=== PATIENT | female | born 1950 | race Caucasian/White ===

== ENCOUNTER → 2017-04-18 | Outpatient (CLI) | payer OTHER ==
[~2017-04-18] VITALS: Ht 170.2 cm; Wt 86.2 kg
[~2017-04-18] MED LIST: ALEVE220 M1 PO; CELEXA 10 MG TA10 M1 PO; ENABLEX15 MG PO; MOBIC15 MG PO; OXYBUTYNIN ER 55 MG PO; VITAMIN D1000 UNI1 PO
--- NOTE | ~2017-04-18 | S ---
[facility] [email or web address] [address] SURGICAL PATH RPT PROCEDURE Name: SAMIRA MONREAL Room #: REG APRIL M.Carmelina.#: [id number] Admission: 04/18/17 Date of : 48 Discharge: Report #: [id number] Path Case #: [id number] PATHOLOGY REPORT COLLECTION DATE: 04/18/2017 RECEIVED DATE: 04/18/2017 SUBMITTING PHYS: Dr. Zeus Machuca OTHER PHYS: Dr. Sheng Watson SPECIMEN(S) RECEIVED: A.Gastritis * * * * * * * * * * * * FINAL DIAGNOSIS: Gastric biopsy "gastric": - Mild chronic reactive gastropathy. - The immunoperoxidase stains for Helicobacter pylori is negative. (SHA:pit; 04/19/2017) PATHOLOGIST: Luc Gunn M.D. REPORT ELECTRONICALLY SIGNED BY: Luc Gunn M.D. DATE/TIME: 04/19/2017 13:05 * * * * * * * * * * * * GROSS PATHOLOGY: Received in formalin labeled "Samira Monreal, BX of gastritis," are 2 segments of david soft tissue measuring 0.6 x 0.3 x 0.3 cm in aggregate dimensions and measuring 0.3 cm each in maximum dimension. The specimen is submitted entirely in cassette A1. (TSD; 04/18/2017) CLINICAL HISTORY: Dysphagia INITIAL CPT CODE(S): A; 89155, 34781 Professional services performed by [facility] at [facility] [address] , [place] [address] Technical services performed by [facility] at [address] [place] [address], [facility] [address], [place] [address]. [facility] [address] [place] [address] SURGICAL PATH RPT PROCEDURE Name: SAMIRA MONREAL Room #: REG APRIL Angulo#: [id number] Admission: 04/18/17 Date of : 48 Discharge: Report #: [id number] Path Case #: [id number] [facility] [id number] [address] [address] PHONE: [phone] DIRECTOR: Casey Wood M.D. * * * END OF REPORT * * *
--- NOTE | ~2017-04-18 | P ---
[facility] [place] [address] PROCEDURE REPORT Name: SAMIRA MONREAL Room #: REG APRIL Angulo#: [id number] Admission: 04/18/17 Attend Phys: Zeus Cruz Discharge: Date of : 48 Report #: [id number] THIS REPORT FOR: //name// CC: Zeus Watson MD DATE OF SERVICE: 04/18/2017 PROCEDURE PERFORMED: Upper endoscopy with biopsies and esophageal dilation. HISTORY OF PRESENT ILLNESS: The patient is a 67-year-old female with complaints of dysphagia. No significant heartburn. No previous history of upper endoscopy. Plan is for EGD with possible dilation. PROCEDURE: The risks and benefits of the procedure were explained to the patient, those risks including, but not limited to bleeding, perforation, and the risk of sedation. She understood these risks and gave informed consent. Sedation was given using propofol per anesthesia. Next, using a standard Chemclininon upper endoscope, the scope was placed in the patient's mouth and advanced under direct vision through the esophagus, stomach, and into the second portion of the duodenum. The larynx was normal in appearance. The upper and mid esophagus was normal. In the distal esophagus at the GE junction, grade A erosive esophagitis was noted and a mild Schatzki's ring was seen. Upon entering the stomach, a hiatal hernia was noted. Overall, the gastric mucosa was normal in the fundus and upper body. In the antrum and distal body, there was a mild gastritis. Biopsies were obtained to rule out H. pylori. The pylorus was normal and patent. The duodenal bulb was normal. In the second portion of the duodenum, there was a large duodenal diverticulum with food particles within the diverticulum, otherwise normal. The scope was then brought back up into the patient's stomach and a Savary guidewire was advanced through the scope leaving the guidewire in place as the scope was then withdrawn. Next, a 48 followed by a 51-Tajik Savary dilation of the esophagus was performed without difficulty. The wire and dilator were removed. The scope was reintroduced into the patient's stomach. There was no evidence of mucosal tear after dilation. The scope was then withdrawn and the procedure terminated. The patient tolerated the procedure well. IMPRESSION: 1. Grade A erosive esophagitis. 2. Schatzki's ring, status post dilation. 3. Hiatal hernia. 4. Gastritis. 5. Duodenal diverticulum. RECOMMENDATIONS: [facility] [address] [place] [address] PROCEDURE REPORT Name: SAMIRA MONREAL Room #: REG Nicole Angulo#: [id number] Admission: 04/18/17 Attend Phys: Zeus Cruz Discharge: Date of : 48 Report #: [id number] 1. Await biopsy results. 2. Recommend daily PPI therapy. 3. Observe the patient post dilation. Thank you for allowing me to participate in her care. By: [id number] Zeus Machuca MD /mame
== END | disposition home or self-care (01) ==
LOC: GI 08:32
DX: K31.9 Disease of stomach and duodenum, unspecified (principal); K22.2 Esophageal obstruction; K44.9 Diaphragmatic hernia without obstruction or gangrene; K57.10 Diverticulosis of small intestine without perforation or abscess without bleeding; Z96.653 Presence of artificial knee joint, bilateral; Z98.890 Other specified postprocedural states
CPT/HCPCS: 62110; 62900

== ENCOUNTER → 2017-11-12 | Outpatient (CLI) | payer OTHER | LOC: MRI 10:51 | DX: I67.82 Cerebral ischemia (principal) ==

== ENCOUNTER → 2018-11-19 | Outpatient (CLI) | payer OTHER | LOC: MRI 09:21 | DX: S09.90XA Unspecified injury of head, initial encounter (principal); I67.82 Cerebral ischemia; G31.9 Degenerative disease of nervous system, unspecified; R90.82 White matter disease, unspecified; X58.XXXA Exposure to other specified factors, initial encounter; Y93.89 Activity, other specified; Y92.89 Other specified places as the place of occurrence of the external cause; Y99.8 Other external cause status ==

== ENCOUNTER → 2018-12-23 | Outpatient (CLI) | payer OTHER | LOC: MRI 14:34 | DX: I63.81 Other cerebral infarction due to occlusion or stenosis of small artery (principal); R93.89 Abnormal findings on diagnostic imaging of other specified body structures ==

== ENCOUNTER → 2019-01-06 | Outpatient (CLI) | payer OTHER | LOC: RAD 12:55 | DX: M51.36 Other intervertebral disc degeneration, lumbar region (principal); M48.061 Spinal stenosis, lumbar region without neurogenic claudication; M48.07 Spinal stenosis, lumbosacral region ==

== ENCOUNTER → 2019-01-20 | Outpatient (CLI) | payer OTHER | LOC: MRI 12:18 | DX: M47.26 Other spondylosis with radiculopathy, lumbar region (principal); M51.16 Intervertebral disc disorders with radiculopathy, lumbar region; M51.27 Other intervertebral disc displacement, lumbosacral region; M47.817 Spondylosis without myelopathy or radiculopathy, lumbosacral region; M48.062 Spinal stenosis, lumbar region with neurogenic claudication; M51.25 Other intervertebral disc displacement, thoracolumbar region; M85.68 Other cyst of bone, other site ==

== ENCOUNTER → 2019-02-12 | Outpatient (CLI) | payer OTHER ==
[~2019-02-12] VITALS: Ht 167.6 cm; Wt 86.2 kg
[~2019-02-12] MED LIST changes: +LEVO-T25 MCG PO; +LIPITOR40 MG PO; +MEDROLDOSEPACK PO; +REMERON15 M2 PO; +TOPROL XL50 MG PO
[2019-02-12 09:21] VITALS: BP 139/68
--- NOTE | 2019-02-12 10:08 | NUR ---
Pain Clinic Assessment: 1. History of Osteoarthritis: B/L KNEES History of Rheumatoid Arthritis: NONE 2. Height: 5 ft. 6 in. 167.6 cm. Weight: 190.0 lb. oz. 86.184 kg. Patient's BMI: 30.7 3. Vital Signs: BP: 139/68 Pulse: 72 Resp: 16 Temp: 02 Sat: 98 ECG Mon: 4. Pain Intensity: 5 5. Fall Risk: Dizziness: N Needs help standing or walking: N Fallen in the last 3 months: N Fall risk comments: 6. Patient on Blood Thinner: None 7. History of Hypertension: Y 8. Opioid Therapy greater than 6 weeks: Opiate Contract Signed: 9. Risk Assessment Tool Provided: LOW 10. Functional Assessment Tool: 11. Recreational Drug Use: Never Drug Type: Tobacco Use: Never Smoker Tobacco Type: Amount or Packs/day: How Many Years: Alcohol Use: No Frequency: Quant:
--- NOTE | 2019-03-07 08:14 | HPC ---
[facility] [address] [place] [address] PAIN MANAGEMENT CONSULTATION Name: SAMIRA MONREAL Room #: REG APRIL Kev#: [id number] Admission: 02/12/19 Attend Phys: Re Smith MD Discharge: Date of : 48 Report #: [id number] THIS REPORT FOR: //name// CC: Re Watson DATE OF SERVICE: 02/12/2019 CHIEF COMPLAINT: Low back pain and leg pain. HISTORY: The patient is a 69-year-old female who has been referred to the Pain Clinic for evaluation. The patient has a history of back pain. She states that she was raking leaves. After raking about 3 bags leaves, she was unable to continue. She states that she "hit the wall." She oftentimes bags 40-60 bags of leaves in the fall. She is having pain that is radiating down into her legs. Has some weakness and feels that on occasion her legs might collapse. The patient felt that her back pain began about a year ago. Over the time, this continued to worsen. Does experience sometimes a stabbing and burning sensation. Pain radiates down to the left side. Her symptoms are more problematic with prolonged standing sometimes and notes some numbness and paresthesias. Denies any new bowel or bladder problems. She has tried nonsteroidal anti-inflammatory medications without significant detention benefit. Notes some trouble with standing, bending and lifting. Rates her pain as a 5/10. ALLERGIES: No known drug allergies. CURRENT MEDICATIONS: Remeron 15 mg at bedtime, levothyroxine 25 mcg, Lipitor 40 mg, metoprolol XL 50 mg, oxybutynin XL 5 mg, and Aleve 220 mg p.r.n. PAST MEDICAL HISTORY: 1. Hypertension. 2. Cerebrovascular accident. 3. Dupuytren's contracture of the left hand. 4. Hyperlipidemia. 5. Thyroid disease. 6. Carpal tunnel syndrome. 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 PAST SURGICAL HISTORY: 1. Knee arthroscopy. 2. Total knee, left 09/2010. 3. For the stroke or CVA in 2019. 4. Left hand surgery for Dupuytren contracture. REVIEW OF SYSTEMS: Fatigue, weakness, wears glasses, blurred vision, stroke, [facility] [address] [place] [address] PAIN MANAGEMENT CONSULTATION Name: SAMIRA MONREAL Room #: REG [facility] [id number] Admission: 02/12/19 Attend Phys: Re Smith MD Discharge: Date of : 48 Report #: [id number] head injury, and concussion. LABORATORY DATA: 1. MRI of the lumbar spine dated 01/20/2019, indication of low back pain with radiculitis. 2. T12-L1, there is mild left paracentral disk protrusion with moderate hypertrophic posterior facet degenerative changes; however, no central spinal stenosis or significant neural foraminal narrowing. 3. L1-L2, there is a generalized disk bulge with moderate hypertrophic facet degenerative change and ligamentum flavum hypertrophy with fluid in both posterior facets. The AP diameter of the thecal sac remains 10 mm. No significant neural foraminal narrowing. 4. L2-L3, there is a generalized disk bulge with moderate hypertrophic posterior facet degenerative change and ligamentum flavum hypertrophy with fluid in both posterior facet joints. AP diameter of the thecal sac measures 11 mm. No central spinal stenosis. 5. L3-L4, there is a generalized disk bulge with a severe hypertrophic posterior facet degenerative change and ligamentum flavum hypertrophy with fluid in both posterior facets. 6. L4-L5, there is a generalized disk bulge with a severe hypertrophic facet degenerative change and ligamentum flavum hypertrophy. AP dimension of the thecal sac remains 11 mm. There is a mild right and [id number]-drwymejt left neural foraminal narrowing. 7. L5-S1, there is a generalized disk bulge, which appears to slightly more eccentric that there appears to be more slightly eccentric towards the left. There is moderate hypertrophic posterior facet change with fluid in both facet joints. There is moderate right and left neural foraminal narrowing. PAIN CLINIC ASSESMENT/PQRS: 1. History of osteoarthritis. The patient has bilateral knee osteoarthritic changes. 2. History of rheumatoid arthritis. The patient is not being treated for rheumatoid arthritis. 3. Height 5 feet 6 inches, weight 190 pounds, BMI is 30.7. 4. Vital signs: Blood pressure 139/68, pulse 72, respiratory rate 16, and room air saturation 98%. 5. Pain intensity, 5/10. 6. Fall history: The patient has not fallen in the last 3 months. 7. Blood thinner. The patient is not on a blood thinning medication. 8. Hypertension. The patient is being treated for hypertension. 9. Opioids greater than 6 weeks. The patient is not on a regular opioid regimen. 10. Risk assessment tool, low for opioid use. 11. Functional assessment tool, . 12. Recreational drug use. The patient denies. 13. Tobacco: The patient has never smoked. [facility] [address] [place] [address] PAIN MANAGEMENT CONSULTATION Name: SAMIRA MONREAL Room #: CASSANDRA Angulo#: [id number] Admission: 02/12/19 Attend Phys: Re Smith MD Discharge: Date of : 48 Report #: [id number] 14. Alcohol. The patient denies frequent use of alcoholic beverages. PHYSICAL EXAMINATION: GENERAL: The patient is a well-developed, well-nourished white female. Appears her stated age. She is alert and oriented x 3. Her affect is appropriate. Speech is fluent. HEENT: Normocephalic, atraumatic. Extraocular eye muscles intact. Sclerae nonicteric. Mucous membranes are moist. NECK: Without adenopathy or JVD. HEART: Regular rate. ABDOMEN: Nontender. CHEST: Clear to auscultation. EXTREMITIES: Upper extremity muscle strength judged to be 5-/5 for the major muscle groups in the upper extremity. The patient has changes in her hand consistent with Dupuytren contracture on the left. Deep tendon reflexes are +1 at the biceps bilaterally. The patient is without significant scoliosis, kyphosis or lordosis. Forward bending to about 90 degrees was not problematic. Did cause some increased discomfort in her knees. She has had surgery in her knees. The patient notes increased pain and discomfort with prolonged standing. The patient does complain about the perception of weakness in her legs while standing during the interview and physical exam. Anterior and posterior spring tests were negative. The patient has well-healed scars in the left and status post arthroplasty. IMPRESSION: 1. Diffuse lumbar spondylosis. Most severe disease is at L4-L5 and L5-S1. 2. Low back pain with clinical signs of spinal stenosis with prolonged standing. 3. Weakness in the lumbar area with the patient is complaining of inability to stand for a prolonged period of time. 4. Hypertension. 5. Cerebrovascular accident. 6. Dupuytren's contracture of the left hand. 7. Hyperlipidemia. 8. Thyroid disease. 9. Carpal tunnel syndrome. 10. 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 RECOMMENDATIONS: We discussed treatment options with the patient. At this juncture, she is having some generalized type of pain. Her perception is that she has weakness in her muscles. We will have the patient try a conservative approach. She will be given a Medrol Dosepak to take in the interim. She will also be referred to a physical therapist. We have them evaluate the patient and treat. Her perception is that her legs are weak. Hopefully, exercises to help increase her muscle strength and her feeling of instability would be improved with use of physical therapy. She will follow up in the future as needed. [address] [address] PAIN MANAGEMENT CONSULTATION Name: SAMIRA MONREAL Room #: REG CLNicole SanabriaEdilberto#: [id number] Admission: 02/12/19 Attend Phys: Re Smith MD Discharge: Date of : 48 Report #: [id number] We would like to thank you for letting us participate in her care. We hope she continues to improve. <ELECTRONICALLY SIGNED> By: Re Smith MD 03/07/19 0814 [id number] MD ambar Coles
== END ==
LOC: PAIN 06:59
DX: M47.816 Spondylosis without myelopathy or radiculopathy, lumbar region (principal); I10 Essential (primary) hypertension; E78.5 Hyperlipidemia, unspecified; I63.9 Cerebral infarction, unspecified; M72.0 Palmar fascial fibromatosis [Dupuytren]; G56.00 Carpal tunnel syndrome, unspecified upper limb